=== PATIENT | female | born 1950 | race Caucasian/White ===

== ENCOUNTER → 2019-09-14 | Outpatient (CLI) | payer MEDICARE | END | disposition home or self-care (01) | LOC: LAB SHORT 08:36 → PLD 08:36 | DX: L57.0 Actinic keratosis (principal) | CPT/HCPCS: 88305 ==

== ENCOUNTER → 2021-06-17 | Outpatient (CLI) | payer MEDICARE, OTHER | LOC: LAB 15:41 → LAB SHORT 15:41 | DX: D48.5 Neoplasm of uncertain behavior of skin (principal); L81.4 Other melanin hyperpigmentation | CPT/HCPCS: 88305 ==

== ENCOUNTER 2021-10-09 06:29 | Day surgery (SDC) | payer MEDICARE, OTHER ==
[~2021-10-09] VITALS: Ht 157.5 cm; Wt 82.8 kg
[2021-10-09] MEDS ORDERED: PROBIOTIC1 EA13 PO (07:01)
[2021-10-09] MEDS ORDERED: CALCIUM 600 +1 EA11 PO (07:02)
[2021-10-09] MEDS ORDERED: CO Q-10-VIT E-1 EACH PO (07:03)
[2021-10-09] MEDS ORDERED: MAG-OXIDE MAGN200 MG PO (07:04)
[2021-10-09] MEDS ORDERED: VITAMIN D5000 UNIT PO (07:05)
[2021-10-09] MEDS ORDERED: C COMPLEX1000 M1 PO (07:06)
[2021-10-09] MEDS ORDERED: KRILL OIL500 MG PO (07:07)
--- NOTE | 2021-10-09 07:17 | NUR ---
[facility] in [facility] warming gown applied. Patient states colon prep results clear. History, Chart, Medications and Allergies reviewed before start of procedure.Lungs clear T/O to Auscultation. Patient confirms NPO status and agrees with scheduled surgery. Pre-Op teaching done. Pt verbalizes understanding. Patient States Post-Procedure ride home has been arranged.
--- NOTE | 2021-10-09 07:55 | NUR ---
10/09/21 0755 Jennifer Jay History, Chart, Medications and Allergies reviewed before start of procedure. Patient confirms NPO status and agrees with scheduled surgery. 3-LEAD EKG REVIEWED WITH PHYSICIAN PRIOR TO START OF PROCEDURE. MONITOR INTACT WITH CONTINUOUS PULSE OXIMETRY AND INTERMITTENT BP. PATIENT DETERMINED TO BE ASA APPROPRIATE FOR PROPOFOL SEDATION PRIOR TO START OF PROCEDURE BY DR. MENDEZ.
--- NOTE | 2021-10-09 09:05 | NUR ---
Discharge instructions reviewed with patient. Patient verbalizes understanding. Copy given to patient to take home. TOLERATES FLUIDS. IV DC'D INTACT. Patient States Post-Procedure ride home has been arranged. Discharged via wheelchair to private car for ride home.
== END 2021-10-09 09:07 | disposition home or self-care (01) ==
LOC: ORSCMMR 06:29
PROVIDERS: Internal Medicine Gastroenterology
PROC: 0DBH8ZX Excision of Cecum, Via Natural or Artificial Opening Endoscopic, Diagnostic (ICD-10-PCS; principal; 2021-10-09 08:00)
PROC: 0DBK8ZX Excision of Ascending Colon, Via Natural or Artificial Opening Endoscopic, Diagnostic (ICD-10-PCS; principal; 2021-10-09 08:00)
PROC: 0DBN8ZX Excision of Sigmoid Colon, Via Natural or Artificial Opening Endoscopic, Diagnostic (ICD-10-PCS; principal; 2021-10-09 08:00)
PROC: 0DBM8ZX Excision of Descending Colon, Via Natural or Artificial Opening Endoscopic, Diagnostic (ICD-10-PCS; principal; 2021-10-09 08:00)
PROC: 0DBL8ZX Excision of Transverse Colon, Via Natural or Artificial Opening Endoscopic, Diagnostic (ICD-10-PCS; principal; 2021-10-09 08:00)
DX: Z12.11 Encounter for screening for malignant neoplasm of colon (principal); Z86.010 Personal history of colon polyps; D12.0 Benign neoplasm of cecum; D12.2 Benign neoplasm of ascending colon; D12.3 Benign neoplasm of transverse colon; D12.4 Benign neoplasm of descending colon; K64.8 Other hemorrhoids; K57.30 Diverticulosis of large intestine without perforation or abscess without bleeding
CPT/HCPCS: 88305; J2704